=== PATIENT | female | born 2000 | race Caucasian/White ===

== ENCOUNTER 2019-08-04 01:18 | Inpatient (IN) | payer MEDICAID ==
[~2019-08-04] VITALS: Ht 154.9 cm; Wt 72.6 kg
[2019-08-04] MEDS ORDERED: FAMOTIDINE 20MG/2ML VIAL IV STA (04:04)
[2019-08-04] MEDS ORDERED: ONDANSETRON HCL 4MG/2ML INJ IV STA (04:04)
[2019-08-04] MEDS ORDERED: VISCOUS LIDOCAINE 2% 15 ML UDC PO STA (04:04)
[2019-08-04] MEDS ORDERED: MAGNESIUM/ALUMINUM HYDROXIDE/SIMETHICONE 30ML UDC PO STA (04:04)
[2019-08-04] MEDS ORDERED: SODIUM CHLORIDE 0.9% 1,000 ML IV ONE (04:04)
[2019-08-04 04:29] LABS: BASOPHILS % 0.5 % (0.0-2.0); EOSINOPHILS % 1.4 % (0.0-5.0); HEMATOCRIT. 37.5 % (36.0-48.0); HEMOGLOBIN. 12.7 g/dL (12.0-16.0); LYMPHOCYTES % 19.1 % (20.0-50.0); MEAN CORPUSCULAR HEMOGLOBIN 28.6 pg (28.0-32.0); MEAN CORPUSCULAR VOLUME 84.6 fL (81.0-99.0); MEAN PLATELET VOLUME 10.2 fl (7.4-10.4); PLATELET 213 x1000/uL (130-400); RED BLOOD CELL COUNT 4.43 mill/uL (4.2-5.4); RED CELL DISTRIBUTION WIDTH 13.7 % (11.6-14.6)
[2019-08-04 04:31] LABS: CHLORIDE 106 mEq/L (98-107)
[2019-08-04 04:34] LABS: PROTHROMBIN TIME 10.4 sec (9.6-11.0)
[2019-08-04 04:49] LABS: CLARITY URINE CLOUDY (CLEAR); COLOR URINE YELLOW (YELLOW); KETONES URINE TRACE (NEGATIVE); LEUKOCYTE ESTERASE URINE 1+ (NEGATIVE); NITRITE URINE POSITIVE (NEGATIVE); OCCULT BLOOD URINE NEGATIVE (NEGATIVE); PROTEIN URINE 1+ (NEGATIVE); SPECIFIC GRAVITY URINE 1.031 (1.005-1.030)
[2019-08-04] MEDS ORDERED: CEFTRIAXONE 1 G PREMIX 50 ML IV NR (05:15)
[2019-08-04] MEDS ORDERED: METRONIDAZOLE 500 MG PREMIX 100 ML IV NR (05:15)
[2019-08-04 08:00] VITALS: BP 109/70
[2019-08-04 08:21] VITALS: BP 109/70
[2019-08-04] MEDS ORDERED: ONDANSETRON HCL 4MG/2ML INJ IV PRN (09:15)
[2019-08-04] MEDS ORDERED: LORAZEPAM 2MG/ML CPJ IV PRN (09:15)
[2019-08-04] MEDS ORDERED: MAGNESIUM/ALUMINUM HYDROXIDE/SIMETHICONE 30ML UDC PO PRN (09:15)
[2019-08-04] MEDS ORDERED: ACETAMINOPHEN 325MG TABLET PO PRN (09:15)
[2019-08-04] MEDS ORDERED: ZOLPIDEM TARTRATE 5MG TABLET PO PRN (09:15)
[2019-08-04] MEDS ORDERED: IPRATROPIUM/ALBUTEROL 0.5-3(2.5)MG/3ML NEB HHN PRN (09:15)
[2019-08-04] MEDS ORDERED: GUAIFENESIN 200MG/10ML SUGAR FREE UDC PO PRN (09:15)
[2019-08-04] MEDS ORDERED: DOCUSATE SODIUM 100MG CAPSULE PO PRN (09:15)
[2019-08-04] MEDS ORDERED: CLONIDINE 0.1MG TABLET PO PRN (09:15)
[2019-08-04] MEDS ORDERED: KETOROLAC 30MG/ML VIAL IV PRN (09:15)
[2019-08-04] MEDS: PANTOPRAZOLE SODIUM 40 MG/VIAL IV SCH (09:51)
[2019-08-04] MEDS: DEXT 5%/LACTATED RINGERS 1,000 ML IV SCH (09:51)
[2019-08-04] MEDS: PIPERACILLIN/TAZOBACTAM 3.375 G in DEXT 5% WATER 100 ML IV SCH ×2 (11:12→18:09)
[2019-08-04 12:00] VITALS: BP 105/59
[2019-08-04 16:00] VITALS: BP 103/49
[2019-08-04 20:00] VITALS: BP 105/61
[2019-08-05] VITALS: BP 104/61
[2019-08-05] MEDS: DEXT 5%/LACTATED RINGERS 1,000 ML IV SCH ×2 (00:18→11:22)
[2019-08-05 04:00] VITALS: BP 99/51
[2019-08-05 08:00] VITALS: BP 84/49
[2019-08-05] MEDS: PANTOPRAZOLE SODIUM 40 MG/VIAL IV SCH (08:56)
[2019-08-05] MEDS: PIPERACILLIN/TAZOBACTAM 3.375 G in DEXT 5% WATER 100 ML IV SCH (11:00)
[2019-08-05 12:00] VITALS: BP 100/53
[2019-08-05 13:27] LABS: CHLORIDE 107 mEq/L (98-107)
[2019-08-05 13:35] LABS: BASOPHILS % 0.6 % (0.0-2.0); EOSINOPHILS % 6.3 % (0.0-5.0); HEMATOCRIT. 37.2 % (36.0-48.0); HEMOGLOBIN. 12.4 g/dL (12.0-16.0); LYMPHOCYTES % 36.2 % (20.0-50.0); MEAN CORPUSCULAR VOLUME 83.8 fL (81.0-99.0); MEAN PLATELET VOLUME 10.4 fl (7.4-10.4); MONOCYTES % 5.7 % (2.0-8.0); NEUTROPHILS % 51.2 % (40.0-76.0); PLATELET 227 x1000/uL (130-400); RED BLOOD CELL COUNT 4.44 mill/uL (4.2-5.4); RED CELL DISTRIBUTION WIDTH 13.7 % (11.6-14.6)
[2019-08-05 15:59] VITALS: BP 100/53
[2019-08-05 16:00] VITALS: BP 114/65
== END 2019-08-05 16:30 | disposition home or self-care (01) ==
LOC: ER 01:18 → 6EST 06:24 → EDBEDREQSVC 06:29 → EDBEDREQ 06:29 → EDBEDREQTM 06:29 → ENRESERV 07:14
PROVIDERS: ADMIT Internal Medicine; ATTEND Internal Medicine
DX: K80.42 Calculus of bile duct with acute cholecystitis without obstruction (principal); E83.51 Hypocalcemia; N39.0 Urinary tract infection, site not specified; E87.6 Hypokalemia; K82.8 Other specified diseases of gallbladder; Z98.891 History of uterine scar from previous surgery
CPT/HCPCS: 36415; 71045; 74181; 76705; 81003; 83036; 87186; 93005; 99285; C9113; J0696; J2405; J2543; J3490; J7030; J7060; J7121